=== PATIENT | male | born 1985 ===

== ENCOUNTER 2016-06-16 16:26 | Emergency (ER) | payer SELFPAY ==
--- NOTE | 2016-06-16 16:28 | EDM.PDOC ---
ED HPI ENT - General Chief Complaint: ENT Problem Stated Complaint: TOOTHACHE Time Seen by Provider: 06/16/16 18:15 Source of Information: Reports: Patient, RN, RN notes reviewed History Limitations: Reports: No limitations - History of Present Illness INITIAL COMMENTS - FREE TEXT/NARRATIVE: History of chronic dental decay with onset right lower molar pain and swelling 2 days ago. Now much worse and cannot take it. Timing/Duration: Reports: Getting worse Severity: severe Location: Reports: mouth Quality: Reports: Ache Improves with: Reports: None Worsens with: Reports: None Associated Symptoms: Reports: no other symptoms - Related Data Allergies/ADRs: Allergies Allergy/AdvReac Type Severity Reaction Status Date / Time No Known Allergies Allergy Verified 06/16/16 18:20 Home Meds: Home Meds Dextroamphetamine/Amphetamine [Adderall 20 mg Tablet] 20 mg PO TID 06/16/16 [ History] Ibuprofen 600 mg PO Q6HR 06/16/16 [History] Naproxen 250 mg PO Q6H 06/16/16 [History] Social & Family History - Family History Family Medical History: Noncontributory ED ROS ENT - Review of Systems Review Of Systems: ROS reveals no pertinent complaints other than HPI. ED EXAM, ENT - Physical Exam Exam: See Below Exam Limited By: No limitations General Appearance: alert, WD/WN, no apparent distress Eye Exam: bilateral eye: normal inspection Ears: normal external exam, normal canal, hearing grossly normal, normal TMs Nose: normal inspection, normal mucousa, no blood Mouth/Throat: Other (chronic dental decay (generalized) with deep caries at tooth secondary and adjacent gingival swelling or abscess. Right facial pain with no visible facial swelling.) Head: atraumatic, normocephalic Neck: normal inspection, supple, non-tender, full range of motion Respiratory/Chest: no respiratory distress, lungs clear, normal breath sounds, no accessory muscle use, chest non-tender Cardiovascular: normal peripheral pulses, regular rate, rhythm, no edema, no gallop, no JVD, no murmur, no rub Neurological: alert, oriented, CN II-XII intact, normal cognition, normal gait, normal reflexes, no motor/sensory deficits Psychiatric: normal affect, normal mood Skin: Warm, Dry, Intact, Normal color, No rash Lymphatic: no adenopathy Course - Vital Signs Last Recorded V/S: Last Vital Signs Temp 36.1 C 06/16/16 18:12 Pulse 92 06/16/16 18:12 Resp 18 06/16/16 18:12 BP 115/74 06/16/16 18:12 Pulse Ox 100 06/16/16 18:12 - Orders/Labs/Meds Meds: Medications Discontinued Medications Generic Name Dose Route Start Last Admin Trade Name Diane PRN Reason Stop Dose Admin Amoxicillin 500 mg 06/16/16 18:29 Amoxil PO 06/16/16 18:30 ONETIME ONE Lidocaine HCl 15 ml 06/16/16 18:26 Xylocaine 2% Viscous PO 06/16/16 18:27 ONETIME ONE Metronidazole 500 mg 06/16/16 18:29 Metronidazole PO 06/16/16 18:30 ONETIME ONE Tramadol HCl 50 mg 06/16/16 18:30 Ultram PO 06/16/16 18:31 ONETIME ONE Departure - Departure Time of Disposition: 18:30 Disposition: Home, Self-Care 01 Condition: good Clinical Impression: Dental abscess Instructions: Dental Abscess, [id number] Forms: ED Department Discharge Additional Instructions: Flagyl 500mg Amoxicillin 500mg. Tramadol 50mg. Viscus Lidocaine 2%. Follow up with dentist at first available appointment.
[2016-06-16 18:13] VITALS: BP 115/74
[2016-06-16] MEDS ORDERED: Lidocaine 2% Viscous Solution 15 ML Cup PO ONE (18:26)
[2016-06-16] MEDS ORDERED: Amoxicillin 500 MG Cap PO ONE (18:29)
[2016-06-16] MEDS ORDERED: metroNIDAZOLE 250 MG Tab PO ONE (18:29)
[2016-06-16] MEDS ORDERED: traMADol 50 MG Tab PO ONE (18:30)
== END 2016-06-16 18:52 | disposition home or self-care (01) ==
LOC: DL.ED 16:26
DX: K04.7 Periapical abscess without sinus (principal)
CPT/HCPCS: 99282; A9270; 99283